=== PATIENT | male | born 1960 | race African-American/Black ===

== ENCOUNTER 2020-05-17 12:35 | Inpatient (IN) | payer BC ==
[~2020-05-17] VITALS: Ht 167.6 cm; Wt 83.9 kg
[2020-05-17 13:17] LABS: HEMATOCRIT. 26.1 % (42.0-52.0); HEMOGLOBIN. 8.2 g/dL (14.0-18.0); MEAN CORPUSCULAR HEMOGLOBIN 30.3 pg (28.0-32.0); MEAN CORPUSCULAR VOLUME 95.9 fL (80.0-94.0); MEAN PLATELET VOLUME 10.3 fl (7.4-10.4); PLATELET 122 x1000/uL (130-400); RED BLOOD CELL COUNT 2.72 mill/uL (4.7-6.1); RED CELL DISTRIBUTION WIDTH 19.6 % (11.6-14.6)
[2020-05-17 13:26] LABS: CHLORIDE 103 mEq/L (98-107)
[2020-05-17 13:27] LABS: INR 1.1; PROTHROMBIN TIME 12.2 sec (9.6-11.0)
[2020-05-17 13:31] LABS: ETHANOL BLOOD < 10 mg/dL
[2020-05-17 13:35] LABS: CREATINE KINASE 183 IU/L (39-308)
[2020-05-17 13:39] LABS: NUCLEATED RED BLOOD CELLS 1 /100 WBC
[2020-05-17 13:41] LABS: PLATELET ESTIMATE SLIGHTLY DECREASED
[2020-05-17] MEDS ORDERED: HYDROCODONE/ACETAMINOPHEN 5/325MG TABLET PO PRN (19:15)
[2020-05-17] MEDS ORDERED: HYDRALAZINE 20MG/ML VIAL IV PRN (19:15)
[2020-05-17] MEDS ORDERED: LORAZEPAM 2MG/ML CPJ IV PRN (19:15)
[2020-05-17] MEDS ORDERED: MAGNESIUM/ALUMINUM HYDROXIDE/SIMETHICONE 30ML UDC PO PRN (19:15)
[2020-05-17] MEDS ORDERED: DOCUSATE SODIUM 100MG CAPSULE PO PRN (19:15)
[2020-05-17] MEDS ORDERED: ONDANSETRON HCL 4MG/2ML INJ IV PRN (19:15)
[2020-05-17] MEDS ORDERED: MORPHINE SULFATE 2 MG/ML CPJ (NOT FOR IM USE) IV PRN (19:15)
[2020-05-17] MEDS ORDERED: IPRATROPIUM/ALBUTEROL 0.5-3(2.5)MG/3ML NEB HHN PRN (19:15)
[2020-05-17] MEDS ORDERED: DEXTROSE 50% WATER 50ML SYRINGE IV PRN (19:15)
[2020-05-17] MEDS ORDERED: ACETAMINOPHEN 325MG TABLET PO PRN (19:15)
[2020-05-17] MEDS: ENOXAPARIN 40MG/0.4ML SYR SUBCUT SCH (20:00)
[2020-05-17] MEDS: INSULIN LISPRO 100 UNITS/ML SUBCUT SCH (21:00)
[2020-05-17 21:04] LABS: *COCAINE SCREEN URINE NEGATIVE (NEGATIVE); METHADONE URINE SCREEN NEGATIVE (NEGATIVE); OPIATES URINE SCREEN NEGATIVE (NEGATIVE)
[2020-05-17 21:05] LABS: *AMPHETAMINES SCREEN URINE NEGATIVE (NEGATIVE); *BARBITURATES SCREEN URINE NEGATIVE (NEGATIVE); CANNABINOID URINE SCREEN NEGATIVE (NEGATIVE); PHENCYCLIDINE URINE SCREEN NEGATIVE (NEGATIVE)
[2020-05-17 21:06] LABS: *BENZODIAZEPINES SCREEN URINE NEGATIVE (NEGATIVE)
[2020-05-17] MEDS: SODIUM CHLORIDE 0.9% INJ 3ML FLUSH IVF SCH (21:08)
[2020-05-17] MEDS: BLOOD SUGAR DIAGNOSTIC STRIP TEST SCH (21:08)
[2020-05-17 22:00] VITALS: BP 149/101
[2020-05-17] MEDS: GUAIFENESIN 200MG/10ML SUGAR FREE UDC PO PRN (22:26)
[2020-05-17] MEDS ORDERED: LEVETIRACETAM 500MG TABLET PO NR (23:00)
[2020-05-17 23:37] LABS: CREATINE KINASE 169 IU/L (39-308)
[2020-05-18] VITALS: BP 129/80
[2020-05-18] MEDS ORDERED: ASPI-1497 PO (01:11)
[2020-05-18] MEDS ORDERED: COLC0.6T66 PO (01:11)
[2020-05-18] MEDS ORDERED: REN800 PO (01:11)
[2020-05-18] MEDS ORDERED: GABA-532 MT (01:11)
[2020-05-18] MEDS ORDERED: TAMS-11 PO (01:11)
[2020-05-18] MEDS ORDERED: NIFE-32 PO (01:11)
[2020-05-18] MEDS ORDERED: [UNRECOGNIZED DRUG - CODE] (01:11)
[2020-05-18] MEDS ORDERED: CLOP-31 PO (01:11)
[2020-05-18] MEDS ORDERED: NEPVIT PO (01:11)
[2020-05-18] MEDS ORDERED: NEBI10TA2 PO (01:11)
[2020-05-18] MEDS ORDERED: ATOR20TA PO (01:11)
[2020-05-18] MEDS ORDERED: FEBU40TA3 PO (01:11)
[2020-05-18 04:00] VITALS: BP 138/86
[2020-05-18 04:31] LABS: HEMATOCRIT. 25.2 % (42.0-52.0); HEMOGLOBIN. 8.1 g/dL (14.0-18.0); MEAN CORPUSCULAR HEMOGLOBIN 30.2 pg (28.0-32.0); MEAN CORPUSCULAR VOLUME 94.2 fL (80.0-94.0); MEAN PLATELET VOLUME 9.5 fl (7.4-10.4); PLATELET 124 x1000/uL (130-400); RED BLOOD CELL COUNT 2.68 mill/uL (4.7-6.1); RED CELL DISTRIBUTION WIDTH 19.4 % (11.6-14.6)
[2020-05-18 04:34] LABS: CHLORIDE 101 mEq/L (98-107)
[2020-05-18 04:44] LABS: CREATINE KINASE 177 IU/L (39-308); T4 FREE 0.96 ng/dL (0.76-1.46)
[2020-05-18 04:47] LABS: CREATINE KINASE MB FRACTION 1.9 ng/mL (0.5-3.6)
[2020-05-18] MEDS: SODIUM CHLORIDE 0.9% INJ 3ML FLUSH IVF SCH ×3 (05:32→22:00)
[2020-05-18] MEDS: BLOOD SUGAR DIAGNOSTIC STRIP TEST SCH ×4 (07:20→21:02)
[2020-05-18] MEDS: INSULIN LISPRO 100 UNITS/ML SUBCUT SCH ×4 (07:21→21:00)
[2020-05-18] MEDS: ENOXAPARIN 40MG/0.4ML SYR SUBCUT SCH ×2 (09:56→20:55)
[2020-05-18 12:00] VITALS: BP 138/97
[2020-05-18 13:03] LABS: PLATELET ESTIMATE SLIGHTLY DECREASED
[2020-05-18] MEDS: GUAIFENESIN 200MG/10ML SUGAR FREE UDC PO PRN (15:56)
[2020-05-18 16:00] VITALS: BP 141/88
[2020-05-18 20:00] VITALS: BP 150/90
[2020-05-18] MEDS: DIPHENHYDRAMINE 50MG/ML VIAL IV PRN (20:54)
[2020-05-18 23:45] VITALS: BP 165/100
[2020-05-18] MEDS: CLONIDINE 0.1MG TABLET PO PRN (23:46)
[2020-05-19 03:45] VITALS: BP 149/80
[2020-05-19] MEDS: DIPHENHYDRAMINE 50MG/ML VIAL IV PRN ×3 (04:33→21:09)
[2020-05-19] MEDS: BLOOD SUGAR DIAGNOSTIC STRIP TEST SCH ×4 (05:46→21:08)
[2020-05-19] MEDS: INSULIN LISPRO 100 UNITS/ML SUBCUT SCH ×4 (05:46→21:00)
[2020-05-19] MEDS: SODIUM CHLORIDE 0.9% INJ 3ML FLUSH IVF SCH ×3 (06:00→21:09)
[2020-05-19 08:00] VITALS: BP 153/87
[2020-05-19] MEDS: GUAIFENESIN 200MG/10ML SUGAR FREE UDC PO PRN (09:22)
[2020-05-19 11:02] LABS: HEMATOCRIT. 24.2 % (42.0-52.0); HEMOGLOBIN. 7.7 g/dL (14.0-18.0); MEAN CORPUSCULAR HEMOGLOBIN 29.7 pg (28.0-32.0); MEAN PLATELET VOLUME 9.5 fl (7.4-10.4); PLATELET 115 x1000/uL (130-400); RED CELL DISTRIBUTION WIDTH 19.8 % (11.6-14.6)
[2020-05-19 12:00] VITALS: BP 146/84
[2020-05-19 14:51] LABS: PLATELET ESTIMATE SLIGHTLY DECREASED
[2020-05-19] MEDS ORDERED: SEVE800T8 PO (15:11)
[2020-05-19 16:00] VITALS: BP 157/87
[2020-05-19 20:00] VITALS: BP 155/95
[2020-05-19] MEDS ORDERED: LEVOFLOXACIN 250MG TABLET PO SCH (23:00)
[2020-05-20] VITALS: BP 158/92
[2020-05-20 04:00] VITALS: BP 156/95
[2020-05-20] MEDS: BLOOD SUGAR DIAGNOSTIC STRIP TEST SCH (05:36)
[2020-05-20] MEDS: INSULIN LISPRO 100 UNITS/ML SUBCUT SCH (05:37)
[2020-05-20] MEDS: SODIUM CHLORIDE 0.9% INJ 3ML FLUSH IVF SCH (05:37)
[2020-05-20] MEDS: GUAIFENESIN 200MG/10ML SUGAR FREE UDC PO PRN (07:33)
[2020-05-20] MEDS: CLONIDINE 0.1MG TABLET PO PRN (07:34)
[2020-05-20] MEDS: DIPHENHYDRAMINE 50MG/ML VIAL IV PRN (07:34)
[2020-05-20] MEDS ORDERED: SEVELAMER CARBONATE 800 MG TABLET PO SCH (07:40)
[2020-05-20 08:00] VITALS: BP 145/82
[2020-05-20 10:06] VITALS: BP 145/82
[2020-05-21] MEDS ORDERED: EPOETIN ALFA-EPBX 10,000 UNIT/ML VIAL SUBCUT SCH (21:00)
== END 2020-05-20 11:15 | disposition home or self-care (01) | DRG 100 ==
LOC: ER 12:35 → 8WST 18:28 → ENRESERV 21:04
PROVIDERS: ADMIT Internal Medicine; ATTEND Internal Medicine
PROC: 5A1D70Z Performance of Urinary Filtration, Intermittent, Less than 6 Hours Per Day (ICD-10-PCS; principal; 2020-05-19)
PROC: 5A1D70Z Performance of Urinary Filtration, Intermittent, Less than 6 Hours Per Day (ICD-10-PCS; 2020-05-20)
DX: R56.9 Unspecified convulsions (principal); N18.6 End stage renal disease; I13.11 Hypertensive heart and chronic kidney disease without heart failure, with stage 5 chronic kidney disease, or end stage renal disease; D64.9 Anemia, unspecified; E11.22 Type 2 diabetes mellitus with diabetic chronic kidney disease; I25.10 Atherosclerotic heart disease of native coronary artery without angina pectoris; Z79.82 Long term (current) use of aspirin; Z79.899 Other long term (current) drug therapy; Z99.2 Dependence on renal dialysis
CPT/HCPCS: 36415; 71045; 80048; 80053; 80305; 80320; 82550; 82553; 82962; 83036; 83605; 83880; 84439; 84443; 84484; 85025; 93005; 93970; 99285; J1200; J1650; J2405; G0480